=== PATIENT | female | born 2000 | race Two or more races ===

== ENCOUNTER 2019-10-24 22:08 | Emergency (ER) | payer OTHER ==
[~2019-10-24] VITALS: Ht 170.2 cm; Wt 81.8 kg
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
[2019-10-24] MEDS ORDERED: TRAM50TA PO (23:49)
[2019-10-24] MEDS ORDERED: ORPH100T PO (23:49)
[2019-10-24] MEDS ORDERED: DICL50TA4 PO (23:49)
[2019-10-25 00:26] VITALS: BP 137/82
== END 2019-10-25 00:34 | disposition home or self-care (01) ==
LOC: ER 22:08
DX: S39.012A Strain of muscle, fascia and tendon of lower back, initial encounter (principal); S80.02XA Contusion of left knee, initial encounter; S40.012A Contusion of left shoulder, initial encounter; V49.49XA Driver injured in collision with other motor vehicles in traffic accident, initial encounter; Y92.488 Other paved roadways as the place of occurrence of the external cause; Y93.89 Activity, other specified; Y99.8 Other external cause status
CPT/HCPCS: 72072; 72100; 73030; 73562; 99285-25